=== PATIENT | female | born 1995 | race Caucasian/White ===

== ENCOUNTER 2017-07-30 17:13 | Emergency (ER) | payer BC, OTHER ==
--- NOTE | 2017-07-30 19:06 | UC ---
Respiratory Complaint HPI - HPI Summary HPI Summary: Pt with non productive cough, wheeze and fatigue x 4 days. no fever, chills little relief with OTC meds. none today. No rash. No sore throat. mild sinus congestion. No cp, abd pain. no n/v/d Pt with h/o recurrent bronchitis - none in > 3 year Pt's medications reviewed this visit - History of Current Complaint Chief Complaint: UCRespiratory Stated Complaint: CONGESTION Time Seen by Provider: 07/30/17 19:05 Hx Obtained From: Patient Hx Last Menstrual Period: depoprovera Onset/Duration: Gradual Onset Timing: Constant Severity Initially: Mild Severity Currently: None Pain Intensity: 0 - Allergies/Home Medications Allergies/Adverse Reactions: Allergies Allergy/AdvReac Type Severity Reaction Status Date / Time No Known Allergies Allergy Verified 07/30/17 18:23 Home Medications: Home Medications NK [No Home Medications Reported] 07/30/17 [History Confirmed 07/30/17] PMH/Surg Hx/FS Hx/Imm Hx Previously Healthy: Yes Other History Of: Negative For: HIV, Hepatitis B, Hepatitis C, Anticoagulant Therapy - Surgical History Surgical History: None - Family History Known Family History: Negative: Cardiac Disease, Hypertension - Social History Occupation: Student Lives: With Family Alcohol Use: Rare Substance Use Type: None Smoking Status (MU): Never Smoked Tobacco Review of Systems Constitutional: Negative Skin: Negative Eyes: Negative Respiratory: Cough Cardiovascular: Negative Gastrointestinal: Negative All Other Systems Reviewed And Are Negative: Yes Physical Exam Triage Information Reviewed: Yes Appearance: Well-Appearing, No Pain Distress, Well-Nourished Vital Signs: Initial Vital Signs Temp 98.0 F 07/30/17 18:20 Pulse 79 07/30/17 18:20 Resp 20 07/30/17 18:20 BP 129/54 07/30/17 18:20 Pulse Ox 100 07/30/17 18:20 Vital Signs Reviewed: Yes Eye Exam: Normal Eyes: Positive: Conjunctiva Clear ENT Exam: Normal ENT: Positive: Normal ENT inspection, Hearing grossly normal, Pharynx normal, Nasal congestion Dental Exam: Normal Neck exam: Normal Neck: Positive: Supple, Nontender, No Lymphadenopathy Respiratory Exam: Normal Respiratory: Positive: No respiratory distress, No accessory muscle use, Wheezing, Other: - scattered wheeze no retraction coarse intermittent cough Cardiovascular Exam: Normal Cardiovascular: Positive: RRR, No Murmur, Pulses Normal Abdominal Exam: Normal Abdomen Description: Positive: Nontender, No Organomegaly Bowel Sounds: Positive: Present Musculoskeletal Exam: Normal Musculoskeletal: Positive: Strength Intact Neurological Exam: Normal Neurological: Positive: Alert Psychological Exam: Normal Skin Exam: Normal UC Diagnostic Evaluation - Laboratory O2 Sat by Pulse Oximetry: 100 - Radiology Radiology Interpretation Completed By: Radiologist - IMPRESSION: Re-Evaluation - Re-Evaluation First Eval Change: Improved - pt states cough feels more loose since neb CXR reviewed Pt with improved aeration, no wheeze will Rx abx, mdi return precautions discussed motrin/apap decongestant return precaution pt declined work/school note pt declined offere to talk to parents Respiratory Course/Dx - Course Course Of Treatment: pt with cough, congestion and wheeze x 4 days. body aches. VSS. scattered wheeze and cough. will give duoneb. cxr. reassess - Differential Dx/Diagnosis Provider Diagnoses: bronchitis Discharge - Sign-Out/Discharge Documenting (check all that apply): Discharge - Discharge Plan Condition: Stable Disposition: HOME Referrals: No Primary Care Phys,NOPCP [Primary Care Provider] - - Billing Disposition and Condition Condition: STABLE Disposition: HOME
[2017-07-30] MEDS ORDERED: Albuterol/Ipratropium NEB.SOL* Albuterol 2.5 MG/Ipratropium 0.5 MG 3 ML INH ONE (19:10)
--- NOTE | 2017-07-30 19:36 | RAD ---
INDICATION: Cough, congestion, chest tightness one week duration. COMPARISON: No relevant prior exams available on the [facility] [place] PACS for comparison. TECHNIQUE: Dual energy PA and routine lateral views of the chest were obtained. REPORT: Elevated lung volumes. Clear lungs and pleural spaces. Negative for pneumothorax. The heart, pulmonary vasculature, and mediastinal contours are unremarkable. Unremarkable osseous structures and soft tissue contours. IMPRESSION: 1. Elevated lung volumes suggest potential obstructive lung disease however the differential includes exuberant inspiratory effort for examination. 2. No evidence for pneumonia.
== END 2017-07-30 19:57 | disposition home or self-care (01) ==
LOC: UCCORT 17:13
DX: J40 Bronchitis, not specified as acute or chronic (principal)
CPT/HCPCS: 71046; 99212; A9270-GY; G0463